=== PATIENT | male | born 1955 | race Caucasian/White ===

== ENCOUNTER 2017-12-17 08:38 | Day surgery (SDC) | payer MEDICARE ==
[~2017-12-17 08:38] MED LIST: ACETAMINOPHEN 1,000 MG/100 ML BTL IV ONE
[2017-12-17] MEDS ORDERED: MORPHINE SULFATE 5 MG/ML PFS IVP ONE (08:39)
[2017-12-17] MEDS ORDERED: KETOROLAC 30 MG/ML VIAL IVP ONE (08:39)
[2017-12-17] MEDS ORDERED: CEFAZOLIN 2 Gram 2 GM/50 ML BAG IVPB ONE (08:39)
[2017-12-17] MEDS ORDERED: BUPIVACAINE 0.25% W/EPI MPF 30ML VIAL IVP ONE (08:39)
[2017-12-17] MEDS ORDERED: LIDOCAINE 2% MDV (20MG/ML) 20ML VIAL IV ONE (08:39)
[2017-12-17] MEDS ORDERED: LABETALOL HCL 5MG/ML, 20ML VIAL IV ONE (08:39)
[2017-12-17] MEDS ORDERED: SEVOFLURANE 250 ML INH ONE (08:39)
[2017-12-17] MEDS ORDERED: ONDANSETRON HCL IV 4 MG/2 ML VIAL IVP ONE (08:39)
[2017-12-17] MEDS ORDERED: PROPOFOL 10 MG/ML VIAL IV ONE (08:39)
--- NOTE | 2017-12-21 12:30 | Operative Note ---
DATE OF SURGERY: 12/17/2017 Surgeon: Guanako Dick DO PREOPERATIVE DIAGNOSES: 1. Torn medial meniscus of the left knee. 2. Chondromalacia of the left knee. POSTOPERATIVE DIAGNOSES: 1. Torn medial meniscus left knee. 2. Chondromalacia of the trochlea left knee. OPERATION: 1. Arthroscopic partial medial meniscectomy left knee. 2. Arthroscopic chondroplasty of the trochlea left knee. DESCRIPTION OF PROCEDURE: This 62-year-old male was taken to the operating room and placed in the supine position on the operating room table. General anesthesia was induced. The left lower extremity was elevated, exsanguinated, and the tourniquet inflated to 300 mmHg. Arthroscopic knee woodard applied. Left knee prepped with Hibiclens and draped in the usual sterile fashion. An inferolateral portal was established for the 4 mm arthroscope and initial evaluation of the joint demonstrated normal appearance of the suprapatellar pouch. The patella appeared essentially normal. However, the trochlea demonstrated an area of about 2.5 x 2 cm going from the center of the trochlea more towards the medial side. These were severe grade 3 changes. Chondroplasty was performed to restore stability to the articular cartilage there. The medial compartment was subsequently entered and a complex tear of the posterior horn of the medial meniscus was present with both flap and horizontal cleavage components being identified. We resected back to the apex of the tear at approximately the 10-o'clock position and then tapered in each direction to restore stability. At the apex of the tear, it was within a millimeter or two of the meniscosynovial junction. The articular cartilage, however, appeared relatively normal. The intercondylar notch was examined and found to be normal. The lateral compartment was entered. No evidence of lateral meniscal tear was present. The articular cartilage was essentially normal other than some minimal fraying of the articular cartilage of the lateral tibial plateau but this was not disturbed. The joint was then copiously irrigated and suctioned. Re-probing revealed restored stability to the medial meniscus and the articular cartilage lesions. The joint was suctioned. The instruments were removed. The portals infiltrated with 0.25% Marcaine with epinephrine. Sterile dressings applied. Tourniquet and knee woodard released. The patient was taken to the recovery room in satisfactory condition. GROSS PATHOLOGY: This patient demonstrated grade 3 chondromalacia of the trochlea as described above. In addition, there was a very superficial grade 2 scuffing of the lateral tibial plateau and a complex tear of the posterior horn of the medial meniscus. CC: Arnulfo CHÁVEZ
== END 2017-12-17 11:17 | disposition home or self-care (01) ==
LOC: SUR 08:38
PROVIDERS: ATTEND Orthopaedic Surgery
DX: S83.232A Complex tear of medial meniscus, current injury, left knee, initial encounter (principal); M94.262 Chondromalacia, left knee
CPT/HCPCS: 29881; 01400; J1885; J2405; J0690; J2270